=== PATIENT | male | born 1995 | race Caucasian/White ===

== ENCOUNTER 2019-09-20 05:16 | Day surgery (SDC) | payer BC, OTHER ==
[~2019-09-20] VITALS: Ht 180.3 cm; Wt 102.3 kg
[2019-09-20] MEDS ORDERED: KETO10TAB PO (05:25)
[2019-09-20] MEDS ORDERED: POTA10CA32 PO (05:25)
[2019-09-20] MEDS ORDERED: FLOM0.4C39 PO (05:25)
[2019-09-20] MEDS ORDERED: NORC1TAB7 PO (05:25)
[2019-09-20] MEDS ORDERED: ZOFR4TAB16 PO (05:25)
[2019-09-20] MEDS ORDERED: NS 1,000 ML IV ONE (05:45)
[2019-09-20 06:04] LABS: BASO % 0.5 % (0.0-1.0); EOS # 0.1 10^3/uL (0.0-0.5); EOS % 1.1 % (0.0-3.0); HEMATOCRIT 39.8 % (42.0-52.0); HEMOGLOBIN 13.7 g/dl (13.5-17.5); LYMPH # 1.8 10^3/uL (1.5-5.0); LYMPH % 20.7 % (24.0-44.0); MEAN CORPUSCULAR HEMOGLOBIN 31.2 pg (27.0-33.0); MEAN CORPUSCULAR HGB CONC 34.4 g/dl (32.0-36.5); MEAN CORPUSCULAR VOLUME 90.7 fl (80.0-96.0); MONO # 0.7 10^3/uL (0.0-0.8); MONO % 8.5 % (0.0-5.0); NEUTROPHILS # 5.8 10^3/uL (1.5-8.5); PLATELET COUNT, AUTOMATED 310 10^3/uL (150-450); RED BLOOD COUNT 4.39 10^6/uL (4.30-6.10); WHITE BLOOD COUNT 8.4 10^3/uL (4.0-10.0)
--- NOTE | 2019-09-20 06:07 | REPVR ---
PROCEDURE INFORMATION: Exam: CT Abdomen And Pelvis Without Contrast Exam date and time: 09/20/2019 5:31 AM Age: 24 years old Clinical indication: Abdominal pain; Flank; Right; Additional info: Flank pain right TECHNIQUE: Imaging protocol: Computed tomography of the abdomen and pelvis without contrast. Radiation optimization: All CT scans at this facility use at least one of these dose optimization techniques: automated exposure control; mA and/or kV adjustment per patient size (includes targeted exams where dose is matched to clinical indication); or iterative reconstruction. COMPARISON: No relevant prior studies available. FINDINGS: Liver: Normal. No mass. Gallbladder and bile ducts: Normal. No calcified stones. No ductal dilation. Pancreas: Normal. No ductal dilation. Spleen: Normal. No splenomegaly. Adrenals: Normal. No mass. Kidneys and ureters: Right perinephric induration with mild right hydronephrosis and proximal periureteral edema which extends to a proximal right ureteral calculus just below the right UPJ measuring 5 x 3 x 3 mm. Stomach and bowel: Mild stool throughout much of the colon. Appendix: A normal appendix is seen. Intraperitoneal space: Minimal free fluid in the pelvis. Vasculature: Unremarkable. No abdominal aortic aneurysm. Lymph nodes: Unremarkable. No enlarged lymph nodes. Bladder: Unremarkable as visualized. Reproductive: Unremarkable as visualized. Bones/joints: Unremarkable. No acute fracture. Soft tissues: Unremarkable. IMPRESSION: 1. Proximal right ureteral calculus just below the UPJ measuring 3 x 3 x 5 mm with obstructive uropathy of the right upper tract. 2. Minimal free fluid in the pelvis which is nonspecific but unusual in a male. 3. Otherwise negative CT abdomen/pelvis. Electronically signed by: Luis Cobian On 09/20/2019 06:06:26 AM
[2019-09-20 06:29] LABS: ALBUMIN 3.8 GM/DL (3.2-5.2); BILIRUBIN,DIRECT 0.3 MG/DL (0.0-0.2); BILIRUBIN,TOTAL 1.2 MG/DL (0.2-1.0)
[2019-09-20] MEDS ORDERED: MORPHINE 2 MG/ML 1ML VIAL (J2270) IV PRN (06:45)
[2019-09-20] MEDS ORDERED: NS 1,000 ML IV SCH (06:45)
[2019-09-20] MEDS ORDERED: dexameTHASONE 4 MG/ML 1ML VIAL (J1100 PER 1MG) As Ordered ONE (08:01)
[2019-09-20] MEDS ORDERED: LIDOCAINE 2% 100MG/5ML SDV (FOR ANES.) As Ordered ONE (08:01)
[2019-09-20] MEDS ORDERED: fentaNYL 100 MCG/2 ML INJECTION (J3010) As Ordered ONE (08:01)
[2019-09-20] MEDS ORDERED: ONDANSETRON 4MG/2ML VIAL As Ordered ONE (08:01)
[2019-09-20] MEDS ORDERED: propofoL 200 MG/20 ML VIAL As Ordered ONE ×2 (08:01→10:04)
[2019-09-20] MEDS ORDERED: MIDAZOLAM INJ 2MG/2ML VIAL (J2250 PER 1MG) As Ordered ONE (08:01)
[2019-09-20] MEDS ORDERED: ceFAZolin 2 GM/D5W 50 ML IV BAG (J0690 PER 500MG) As Ordered ONE (09:09)
--- NOTE | 2019-09-20 09:53 | SMCUROLCON ---
Urology Consultation General Date of Consultation 09/20/19 Reason For Consultation This patient is seen for Obstructive Uropathy. History of Present Illness This is a 24 y/o M w/ no significant PMH, presenting to the ER this morning w/ worsening R flank pain. He notes that he went to [facility] ER this past Monday after having increasing R flank pain for a few days. He was diagnosed w/ an obstructing 5mm proximal R ureteral stone on that visit and was discharged w/ pain medications and f/u in the urology office. The patient notes that over the last day his pain has become increasingly worse, prompting his presentation to the ER this morning. A repeat CT A/P this morning was notable for a 5mm stone still in the proximal R ureter w/ hydro. His Cr was also noted to be elevated at 1.6. He denies dysuria. He notes nausea but no vomiting. He denies f/c/ns. Past Medical History Medical History None Surgical Hstory None significant Medications Current Medications Current Medications Medications (Trade) Dose Ordered Sig/Sravanthi Route PRN Reason Start Time Stop Time Status Last Admin Dose Admin Home Med (Med Rec Complete!) ASDIRECTED XX 09/20/19 07:15 09/20/19 07:04 DC Morphine Sulfate (Morphine Sulfate Inj) 2 mg Q30M PRN IV MODERATE PAIN (PS 5-7) 09/20/19 06:45 Sodium Chloride 1,000 ml @ 100 mls/hr Q10H IV 09/20/19 06:45 09/20/19 06:52 Allergies Allergies: Coded Allergies: No Known Allergies (Unverified , 09/20/19) Review of Systems Constitutional: Denies: Fever, Chills, Sweats, Weakness, Malaise, Other Pulmonary: Denies: Dyspnea, Cough, Pleuritic Chest Pain, Other Symptoms Cardiovascular: Denies Chest Pain, Denies Palpitations, Denies Orthopnea, Denies Paroxysmal Noc. Dyspnea, Denies Edema, Denies Lt Headedness, Denies Other Symptoms Gastrointestinal: Reports: Nausea; Denies: Vomiting Genitourinary: Denies: Dysuria, Frequency, Incontinence, Hematuria Musculoskeletal: Reports: Back Pain (R flank); Denies: Neck Pain Neurological: Denies: Weakness, Numbness, Incoordination, Change in Speech Psych: Reports: Mood Normal; Denies: Anxiety, Depression Physical Examination General Exam: Alert, No Acute Distress Chest Exam: Normal air movement Heart Exam: Rate Normal, Regular Rhythm Abdomen Exam: Soft; No: Tenderness Skin Exam: Nl turgor and temperature Neuro Exam: Normal Speech Psych Exam: Mental status NL, Mood NL Vital Signs/I&O Vital Signs Date Time Temp Pulse Resp B/P (MAP) Pulse Ox O2 Delivery O2 Flow Rate FiO2 09/20/19 08:31 97.6 60 118/67 (84) 100 09/20/19 06:16 16 09/20/19 05:17 Room Air Laboratory Data 24H Labs Laboratory Tests 2 09/20/19 05:49: Immature Granulocyte % (Auto) 0.2, Neutrophils (%) (Auto) 69.0H, Lymphocytes (%) (Auto) 20.7L, Monocytes (%) (Auto) 8.5H, Eosinophils (%) (Auto) 1.1, Basophils (%) (Auto) 0.5, Neutrophils # (Auto) 5.8, Lymphocytes # (Auto) 1.8, Monocytes # (Auto) 0.7, Eosinophils # (Auto) 0.1, Basophils # (Auto) 0.0, Nucleated Red Blood Cells % (auto) 0.0, Urine Color YELLOW, Urine Appearance CLEAR, Urine pH 6.0, Urine Specific Paige 1.017, Urine Protein NEGATIVE, Urine Glucose (UA) NEGATIVE, Urine Ketones NEGATIVE, Urine Blood NEGATIVE, Urine Nitrite NEGATIVE, Urine Bilirubin NEGATIVE, Urine Urobilinogen 0.2, Urine Leukocyte Esterase TRACEH, Urine WBC (Auto) 4H, Urine RBC (Auto) 1, Urine Hyaline Casts (Auto) 0, Urine Bacteria (Auto) NEGATIVE, Urine Squamous Epithelial Cells 0, Urine Mucus (Auto) SMALL, Urine Sperm (Auto) , Total Bilirubin 1.2H, Direct Bilirubin 0.3H, Aspartate Amino Transf (AST/SGOT) 24, Alanine Aminotransferase (ALT/SGPT) 31, Alkaline Phosphatase 53, Total Protein 7.0, Albumin 3.8, Albumin/Globulin Ratio 1.2, Lipase 65L 09/20/19 05:55: POC Glucose (Misc Panel) 96, POC Sodium (Misc Panel) 136, POC Potassium (Misc Panel) 4.2, POC Chloride (Misc Panel) 102, POC Total CO2 (Misc Panel) 25.0, POC Blood Urea Nitrogen (Misc Panel 18, POC Ionized Calcium (Misc Panel) 4.7, POC Creatinine (Misc Panel) 1.6H, POC Hematocrit (Misc Panel) 40.0 09/20/19 06:42: Coronavirus (COVID-19)(PCR) NEGATIVE CBC/BMP Laboratory Tests 09/20/19 05:49 Microbiology Microbiology 09/20/19 Urine Culture, Received Pending Assessment This is a 24 y/o M presenting to the ER for the 2nd time in a week for pain as sociated w/ an obstructing proximal R ureteral stone. Given the continued pain and JOSIANE, I recommended taking him to the OR this morning for cystoscopy, R ureteroscopy w/ laser lithotripsy, and R ureteral stent placement. After a discussion of the risks and benefits of surgery, informed consent was signed. UA appears negative for infection. Plan - OR this morning - NPO - 2g ancef OCOR - if pain is controlled postop, patient may be discharged home RAJ DUMONT MD September 20, 2019 09:53
[2019-09-20] MEDS ORDERED: CONRAY-60 60% 50ML VIAL (Q9961) As Ordered ONE (09:56)
[2019-09-20] MEDS ORDERED: ceFAZolin SOD 2 GM in IV 1 EA IV ONE (10:00)
[2019-09-20] MEDS ORDERED: ACETAMINOPHEN 1000MG 100ML IV BTL (OFIRMEV) (J0131 PER 10MG) As Ordered ONE (10:08)
[2019-09-20] MEDS ORDERED: ONDANSETRON 4MG/2ML VIAL IV PRN (11:15)
[2019-09-20] MEDS ORDERED: PERCOCET 5MG/325MG TAB PO PRN (11:15)
[2019-09-20] MEDS ORDERED: LR 1,000 ML IV SCH (11:15)
[2019-09-20] MEDS ORDERED: fentaNYL 100 MCG/2 ML INJECTION (J3010) IV PRN (11:15)
[2019-09-20] MEDS ORDERED: NORCO, ANEXSIA 5/325MG TABLET (HYDROcodone/ACETAMINOPHEN) PO PRN (11:15)
--- NOTE | 2019-09-20 12:21 | REP ---
C-ARM VIEWS ABDOMEN AND PELVIS: Two C-arm views abdomen/pelvis performed during right ureteral stent placement. Contrast partially opacifies the right pelvicaliceal system. Right ureteral stent placed. The proximal end is coiled in the right renal pelvis and the distal end in the urinary bladder. 48 seconds fluoroscopy time utilized. Electronically Signed by Elijah Flores MD 09/20/2019 12:49 P
[2019-09-20 13:33] VITALS: BP 132/71
--- NOTE | 2019-09-24 15:14 | RO ---
DATE OF PROCEDURE: 09/20/2019 PREPROCEDURE DIAGNOSIS: Obstructing right ureteral stone. POSTPROCEDURE DIAGNOSIS: Obstructing right ureteral stone. PROCEDURE: Cystoscopy, right ureteroscopy with basket extraction of stone and balloon dilation of ureter, right retrograde pyelogram with intraoperative interpretation of the images, right ureteral stent placement. SURGEON: Dr. Marty Haro. VICE PRESIDENT: None. ANESTHESIA: General. ESTIMATED BLOOD LOSS: INTRAOPERATIVE INDICATION: This is a 24-year-old male who was found to have obstructing 5 mm proximal right ureteral stone. He was seen in the emergency room 1 week ago. His pain returned and he came back to the emergency room today. He was also found to have acute kidney injury. He was brought to the operating room today to retrieve the stone. DESCRIPTION OF PROCEDURE: The patient was brought to the operating room and general anesthesia was induced. Prophylactic antibiotics were infused. He was the placed in the dorsal lithotomy position and prepped and draped in the usual sterile fashion. A rigid cystoscope was inserted into the urethral meatus and advanced into the bladder. The guidewire was advanced up the right collecting system. I then advanced the ureteral access sheath up the right collecting system. I then went up the access sheath with the flexible ureteroscope. Of note, within the proximal ureter, it was very narrow and I could not get the scope all the way up to the ureteropelvic junction or into the kidney. I therefore advanced another wire into the right collecting system and removed the scope. I advanced a balloon dilator over the second wire and utilized that to dilate the proximal ureter. Once that was done, the balloon dilator was removed and I was able to advance the scope all the way up into the kidney. Of note, the stone had been pushed up into the kidney. The stone was found in side a mid pole calyx and was removed using a basket. No other stones were seen in either kidney. A retrograde pyelogram was performed and there was mild to moderate right hydronephrosis with no extravasation. I then withdrew the ureteroscope along with the access and no additional stones could be seen within the ureter. I then utilized the previously placed wire to advance the 6-Portuguese x 22-32 mL JJ ureteral stent into the right collecting system. The wire was removed and there were adequate curls of the stent in the right renal pelvis and in the bladder. The bladder was emptied of all fluids and this marked the conclusion of the procedure. The patient was taken out of the dorsal lithotomy position, awakened from anesthesia and transported to the recovery room in stable condition. ESTIMATED BLOOD LOSS: 5 mL. COMPLICATIONS: None. SPECIMENS: Kidney stone. PLAN: The patient will followup in the clinic in 2-3 weeks for stent removal. HOMA
[2019-10-01 19:12] LABS: CA Oxalate Dihy 50 % (.); Ca Ox Monohydrate 10 % (.); Size 5x3 mm (.)
== END 2019-09-20 13:44 | disposition home or self-care (01) ==
LOC: M ED 05:16 → M SDC 08:30
PROVIDERS: ATTEND Urology
DX: N13.2 Hydronephrosis with renal and ureteral calculous obstruction (principal)
CPT/HCPCS: 52332; 52341; 52352; 74176; 74420; 80047; 80076; 81001; 82365; 83690; 85025; 87086; 88300; 93041; 96360; 96361; 99285; C1769; C1894; C2617; J0131; J0690; J1100; J2250; J2405; J3010; Q9961; U0002

== ENCOUNTER → 2021-06-14 | Outpatient (CLI) | payer BC, OTHER ==
[~2021-06-14] MED LIST: FLOM0.4C39 PO; KETO10TAB PO; NORC1TAB7 PO; POTA10CA32 PO; ZOFR4TAB16 PO
[2021-06-14 19:17] LABS: BASO # 0.1 10^3/uL (0.0-0.2); BASO % 0.8 % (0.0-1.0); EOS # 0.1 10^3/uL (0.0-0.5); EOS % 1.6 % (0.0-3.0); HEMATOCRIT 43.9 % (42.0-52.0); HEMOGLOBIN 14.6 g/dl (13.5-17.5); LYMPH % 27.5 % (24.0-44.0); MEAN CORPUSCULAR HEMOGLOBIN 30.4 pg (27.0-33.0); MEAN CORPUSCULAR HGB CONC 33.3 g/dl (32.0-36.5); MEAN CORPUSCULAR VOLUME 91.3 fl (80.0-96.0); MONO # 0.9 10^3/uL (0.0-0.8); MONO % 12.4 % (2.0-8.0); NEUTROPHILS # 4.3 10^3/uL (1.5-8.5); NEUTROPHILS % 57.6 % (36.0-66.0); PLATELET COUNT, AUTOMATED 285 10^3/uL (150-450); RED BLOOD COUNT 4.81 10^6/uL (4.30-6.10); WHITE BLOOD COUNT 7.4 10^3/uL (4.0-10.0)
[2021-06-14 19:54] LABS: ALBUMIN 4.3 GM/DL (3.2-5.2); ALT/SGPT 63 U/L (12-78); BILIRUBIN,TOTAL 0.5 MG/DL (0.2-1.0); BLOOD UREA NITROGEN 23 MG/DL (7-18); CALCIUM LEVEL 9.2 MG/DL (8.5-10.1); CARBON DIOXIDE LEVEL 28 MEQ/L (21-32); CHLORIDE LEVEL 106 MEQ/L (98-107); CREATININE FOR GFR 0.99 MG/DL (0.70-1.30); GLOMERULAR FILTRATION RATE > 60.0 (>60); GLUCOSE, FASTING 95 MG/DL (70-100); POTASSIUM SERUM 4.6 MEQ/L (3.5-5.1); SODIUM LEVEL 141 MEQ/L (136-145); TOTAL PROTEIN 7.6 GM/DL (6.4-8.2)
== END ==
LOC: M LAB 18:25
PROVIDERS: ATTEND Physician Assistant
DX: N20.0 Calculus of kidney (principal)

== ENCOUNTER 2022-11-13 16:17 | Emergency (ER) | payer BC, OTHER ==
[~2022-11-13] VITALS: Ht 180.3 cm; Wt 99.1 kg
[~2022-11-13 16:17] MED LIST changes: -POTA10CA32 PO; +POTA10CA60 PO
[2022-11-13] MEDS ORDERED: EX-L15TA PO (16:34)
[2022-11-13] MEDS ORDERED: MIRA1POW3 PO (16:34)
[2022-11-13] MEDS ORDERED: NS 1,000 ML IV ONE (20:15)
[2022-11-13] MEDS ORDERED: ISOVUE-370 76% 100ML VIAL As Ordered ONE (21:04)
[2022-11-13 21:07] LABS: BASO # 0.1 10^3/uL (0.0-0.2); BASO % 0.7 % (0.0-1.0); EOS # 0.1 10^3/uL (0.0-0.5); HEMATOCRIT 42.2 % (42.0-52.0); HEMOGLOBIN 14.3 g/dl (13.5-17.5); LYMPH % 28.5 % (24.0-44.0); MEAN CORPUSCULAR HEMOGLOBIN 30.3 pg (27.0-33.0); MEAN CORPUSCULAR HGB CONC 33.9 g/dl (32.0-36.5); MEAN CORPUSCULAR VOLUME 89.4 fl (80.0-96.0); MONO # 0.4 10^3/uL (0.0-0.8); MONO % 5.1 % (2.0-8.0); NEUTROPHILS # 4.5 10^3/uL (1.5-8.5); NEUTROPHILS % 64.6 % (36.0-66.0); PLATELET COUNT, AUTOMATED 349 10^3/uL (150-450); RED BLOOD COUNT 4.72 10^6/uL (4.30-6.10); WHITE BLOOD COUNT 6.9 10^3/uL (4.0-10.0)
[2022-11-13 21:31] LABS: ALBUMIN 4.1 G/DL (3.2-5.2); BILIRUBIN,DIRECT 0.4 MG/DL (<0.4); BILIRUBIN,TOTAL 1.5 MG/DL (0.3-1.2); MAGNESIUM LEVEL 2.1 MG/DL (1.8-2.4); TOTAL PROTEIN 6.7 G/DL (5.7-8.2)
[2022-11-13 21:34] LABS: THYROID STIMULATING HORMONE 0.385 uIU/ML (0.55-4.78)
[2022-11-13 22:16] VITALS: BP 127/76; TEMP 97.7; O2SAT 100
== END 2022-11-13 22:20 | disposition home or self-care (01) ==
LOC: M ED 16:17
DX: K59.00 Constipation, unspecified (principal); F10.10 Alcohol abuse, uncomplicated; Z87.442 Personal history of urinary calculi; Z79.899 Other long term (current) drug therapy
CPT/HCPCS: 74018; 74177; 80047; 80076; 83605; 83690; 83735; 84443; 85025; 87040; 96360; 96361; 99284; Q9967

== ENCOUNTER → 2023-11-14 | Outpatient (CLI) | payer BC, OTHER ==
[~2023-11-14] MED LIST changes: +EX-L15TA PO; +MIRA33506 PO; -POTA10CA60 PO; +POTA10CA70 PO
[2023-11-14 18:31] LABS: BASO % 0.6 % (0.0-1.0); EOS # 0.1 10^3/uL (0.0-0.5); HEMOGLOBIN 14.7 g/dl (13.5-17.5); LYMPH # 1.8 10^3/uL (1.5-5.0); LYMPH % 25.8 % (24.0-44.0); MEAN CORPUSCULAR HEMOGLOBIN 31.1 pg (27.0-33.0); MEAN CORPUSCULAR HGB CONC 34.2 g/dl (32.0-36.5); MEAN CORPUSCULAR VOLUME 90.9 fl (80.0-96.0); MONO # 0.5 10^3/uL (0.0-0.8); MONO % 7.6 % (2.0-8.0); NEUTROPHILS # 4.5 10^3/uL (1.5-8.5); NEUTROPHILS % 64.7 % (36.0-66.0); PLATELET COUNT, AUTOMATED 322 10^3/uL (150-450); RED BLOOD COUNT 4.73 10^6/uL (4.30-6.10)
[2023-11-14 18:58] LABS: THYROID STIMULATING HORMONE 0.792 uIU/ML (0.55-4.78); TOTAL 25(OH) VITAMIN D 23.2 NG/ML (20.0-100.0)
[2023-11-14 18:59] LABS: VITAMIN B12 LEVEL 581 PG/ML (211-911)
[2023-11-14 19:00] LABS: FREE T4 1.08 NG/DL (0.89-1.76)
[2023-11-14 19:01] LABS: ALBUMIN 4.4 G/DL (3.2-5.2); ALKALINE PHOSPHATASE 61 U/L (46-116); ALT/SGPT 45 U/L (7.0-40); AST/SGOT 22 U/L (<34); BILIRUBIN,TOTAL 0.7 MG/DL (0.3-1.2); BLOOD UREA NITROGEN 18 MG/DL (9-23); CARBON DIOXIDE LEVEL 24 MMOL/L (20-31); CHLORIDE LEVEL 108 MMOL/L (98-107); CREATININE FOR GFR 0.92 MG/DL (0.70-1.30); GLOMERULAR FILTRATION RATE > 60.0 (>60); GLUCOSE, FASTING 103 MG/DL (60-100); SODIUM LEVEL 140 MMOL/L (136-145); TOTAL PROTEIN 7.1 G/DL (5.7-8.2)
[2023-11-14 19:02] LABS: IRON (FE) 63 UG/DL (65-175)
[2023-11-14 19:40] LABS: HEMOGLOBIN A1c 5.1 % (4.0-6.0)
== END ==
LOC: M LAB 18:03
PROVIDERS: ATTEND Physician Assistant Medical
DX: R53.83 Other fatigue (principal); R42 Dizziness and giddiness

== ENCOUNTER 2024-04-26 09:27 | Emergency (ER) | payer OTHER, BC ==
[~2024-04-26] VITALS: Ht 180.3 cm; Wt 111.9 kg
[2024-04-26 10:53] LABS: BASO % 0.3 % (0.0-1.0); EOS % 0.1 % (0.0-3.0); HEMATOCRIT 41.1 % (42.0-52.0); HEMOGLOBIN 14.4 g/dl (13.5-17.5); LYMPH # 1.6 10^3/uL (1.5-5.0); LYMPH % 16.9 % (24.0-44.0); MEAN CORPUSCULAR HEMOGLOBIN 31.5 pg (27.0-33.0); MEAN CORPUSCULAR VOLUME 89.9 fl (80.0-96.0); MONO # 0.7 10^3/uL (0.0-0.8); MONO % 7.2 % (2.0-8.0); NEUTROPHILS % 75.3 % (36.0-66.0); PLATELET COUNT, AUTOMATED 282 10^3/uL (150-450); RED BLOOD COUNT 4.57 10^6/uL (4.30-6.10); WHITE BLOOD COUNT 9.3 10^3/uL (4.0-10.0)
[2024-04-26 11:20] LABS: CK-MB VALUE MASS 5.9 NG/ML (<3.6)
[2024-04-26 11:22] LABS: ALBUMIN 4.5 G/DL (3.2-5.2); ALKALINE PHOSPHATASE 60 U/L (40-129); ALT/SGPT 63 U/L (7.0-40); AST/SGOT 42 U/L (<34); BILIRUBIN,TOTAL 1.2 MG/DL (0.3-1.2); BLOOD UREA NITROGEN 19 MG/DL (9-23); CALCIUM LEVEL 9.6 MG/DL (8.5-10.1); CARBON DIOXIDE LEVEL 24 MMOL/L (20-31); CHLORIDE LEVEL 106 MMOL/L (98-107); CPK CREATINE PHOSPHOKINASE 858 U/L (46-171); CREATININE FOR GFR 0.75 MG/DL (0.70-1.30); GLOMERULAR FILTRATION RATE > 60.0 (>60); GLUCOSE, FASTING 86 MG/DL (60-100); MB/CK RELATIVE INDEX 0.68 (< OR =4); POTASSIUM SERUM 3.9 MMOL/L (3.5-5.1); SODIUM LEVEL 141 MMOL/L (136-145); TOTAL PROTEIN 7.4 G/DL (5.7-8.2)
[2024-04-26] MEDS: BOOSTRIX VACCINE (TETANUS/DIPHTH/ACEL. PERTUSSIS) 0.5ML SYR IM.IMMUN ONE (11:24)
[2024-04-26] MEDS: NS (Normal Saline) 0.9% 1,000 ML IV ONE (11:50)
[2024-04-26 13:07] VITALS: BP 133/84; TEMP 97.3; O2SAT 99
== END 2024-04-26 13:09 | disposition home or self-care (01) ==
LOC: M ED 09:27
DX: T75.4XXA Electrocution, initial encounter (principal); I49.49 Other premature depolarization; Z23 Encounter for immunization; Y92.9 Unspecified place or not applicable; Y93.89 Activity, other specified; Y99.0 Civilian activity done for income or pay; Z79.899 Other long term (current) drug therapy